=== PATIENT | male | born 1995 | race Caucasian/White ===

== ENCOUNTER 2017-07-01 23:36 | Emergency (ER) | payer BC ==
[~2017-07-01] VITALS: Ht 182.9 cm; Wt 70.0 kg
[2017-07-01] MEDS ORDERED: ONDANSETRON INJ 2 MG/ML 2 ML VIAL IV STA (23:41)
[2017-07-01 23:47] VITALS: TEMP 36.4; Ht 182.9 cm; Wt 70.0 kg
[2017-07-01 23:50] VITALS: O2SAT 100
[2017-07-02 00:36] LABS: CALCIUM 9.4 mg/dl (8.5-10.1); CREATININE 0.83 mg/dl (0.60-1.40); POTASSIUM 3.4 mmol/L (3.5-5.1)
--- NOTE | 2017-07-02 04:46 | EMERGENCY ROOM VISIT NOTE ---
History Report prepared by Lollyibaudrey: Arnel Lipscomb Under the Supervision of: Dr. Maida Zamarripa D.O. First contact with patient: 23:39 Chief Complaint: ALCOHOL OVERDOSE Stated Complaint: ALCOHOL OVERDOSE History of Present Illness The patient is a 22 year old male who presents to the Emergency Room by EMS with complaints of constant alcohol intoxication beginning shortly prior to arrival. Per EMS, the patient called EMS for himself after having too much to drink. He had six drinks of [employer] and Gin. He vomited 3-4 times prior to arrival. The patient currently complains of nausea. He denies any pain or illness. He denies recent falls or trauma. He stopped drinking over 1.5 hours ago. HPI limited secondary to alcohol intoxication. Source of History: patient, EMS History Limited By: intoxication (alcohol) Onset: Shortly prior to arrival Quality: other (alcohol intoxication) Timing: constant Associated Symptoms: + nausea, + vomiting Review of Systems See HPI for pertinent positives & negatives. A total of 10 systems reviewed and were otherwise negative. Past Medical & Surgical Unobtainable secondary to alcohol intoxication. Family History Unobtainable secondary to alcohol intoxication. Social History Unobtainable secondary to alcohol intoxication. Current/Historical Medications No Active Prescriptions or Reported Meds Allergies Coded Allergies: No Known Allergies (Unverified , 07/02/17) Physical Exam Vital Signs Date Time Temp Pulse Resp B/P (MAP) Pulse Ox O2 Delivery O2 Flow Rate FiO2 07/02/17 07:44 82 14 113/85 100 07/02/17 06:48 86 07/02/17 03:26 88 16 119/85 98 Room Air 07/02/17 03:07 93 07/02/17 01:31 87 18 115/75 100 07/02/17 01:00 88 21 111/77 07/02/17 00:31 68 21 89/54 07/02/17 00:04 94 15 112/74 100 07/01/17 23:50 68 07/01/17 23:50 100 Room Air 07/01/17 23:47 36.4 85 16 101/68 94 Room Air Physical Exam GENERAL: alert, well appearing, well nourished, no distress, non-toxic. Smells of ETOH. Actively vomiting. EYE EXAM: normal conjunctiva, PERRL and EOM's grossly intact OROPHARYNX: no exudate, no erythema, lips, buccal mucosa, and tongue normal and mucous membranes are moist NECK: supple, no nuchal rigidity, no adenopathy, non-tender LUNGS: Clear to auscultation. Normal chest wall mechanics HEART: no murmurs, S1 normal and S2 normal ABDOMEN: abdomen soft, non-tender, normo-active bowel sounds, no masses, no rebound or guarding. BACK: Back is symmetrical on inspection and there is no deformity, no midline tenderness, no CVA tenderness. SKIN: no rashes and no bruising UPPER EXTREMITIES: upper extremities are grossly normal. No signs of trauma. LOWER EXTREMITIES: No pitting edema. No signs of trauma. NEURO EXAM: Normal sensorium, cranial nerves II-XII grossly intact, normal speech, no gross weakness of arms, no gross weakness of legs. Medical Decision & Procedures Laboratory Results 07/01/17 23:57 Test 07/01/17 23:57 Anion Gap 12.0 mmol/L (3-11) Est Creatinine Clear Calc Drug Dose 137.0 ml/min Estimated GFR () 143.7 Estimated GFR (Non- 124.0 BUN/Creatinine Ratio 13.6 (10-20) Calcium Level 9.4 mg/dl (8.5-10.1) Ethyl Alcohol mg/dL 221.0 mg/dl (0-3) Laboratory results per my review. Medications Administered Medications (Trade) Dose Ordered Sig/Liya Route Start Time Stop Time Status Last Admin Dose Admin Ondansetron HCl (Zofran Inj) 4 mg NOW STAT IV 07/01/17 23:41 07/01/17 23:43 DC 07/02/17 00:20 4 MG ED Course 2336: The patient was evaluated in room B3B. A complete history and physical exam was performed. 0120: I reassessed the patient. He is sitting up, and is coherent and alert. He continues to have waves of nausea. 0551: I spoke with the patient. He is awake, and feeling better. He will undergo a PO challenge. 0615: Upon reevaluation, the patient is feeling better. I discussed the findings and the treatment plan with the patient. He verbalizes agreement and understanding. He was discharged home. Medical Decision Differential diagnosis: Etiologies such as alcohol intoxication, toxicologic, infection, hypoglycemia, electrolyte abnormalities, cardiac sources, intracerebral event, neurologic, as well as others were entertained. Patient improved here with Zofran, vital signs stable. Patient well-appearing at discharge was tolerating by mouth, and related with a steady gait. Patient monitored for several hours as a precaution. Minor electrolyte abnormalities likely secondary to alcohol and vomiting. Discussed with patient hydration, response will drinking, symptoms to watch and return for, he verbalized understanding was agreeable with plan. Patient denied any other symptoms on repeat evaluation, continued to deny any trauma or injury. Medication Reconcilliation Current Medication List: was personally reviewed by me Blood Pressure Screening Patient's blood pressure: Normal blood pressure Blood pressure disposition: Did not require urgent referral Impression Primary Impression: Alcoholic intoxication Additional Impression: Vomiting Scribe Attestation The scribe's documentation has been prepared under my direction and personally reviewed by me in its entirety. I confirm that the note above accurately reflects all work, treatment, procedures, and medical decision making performed by me. Departure Information Dispostion Home / Self-Care Prescriptions No Active Prescriptions or Reported Meds Patient Instructions [facility] Additional Instructions Please drink responsibly and in a safe location. Do not drink and drive. Please drink plenty of fluids to stay well hydrated. If you have any new or concerning symptoms, please return to the emergency room. Problem Qualifiers Primary Impression: Alcoholic intoxication Complication of substance-induced condition: uncomplicated Qualified Codes: F10.920 - Alcohol use, unspecified with intoxication, uncomplicated Additional Impression: Vomiting Vomiting type: unspecified Vomiting Intractability: non-intractable Nausea presence: with nausea Qualified Codes: R11.2 - Nausea with vomiting, unspecified
[2017-07-02 07:44] VITALS: BP 113/85; PULSE 82; O2SAT 100
== END 2017-07-02 07:46 | disposition home or self-care (01) ==
LOC: EDBD 23:36 → C.EDB 23:40
DX: F10.120 Alcohol abuse with intoxication, uncomplicated (principal); Y90.7 Blood alcohol level of 200-239 mg/100 ml